=== PATIENT | male | born 1960 | race Caucasian/White ===

== ENCOUNTER 2020-06-13 16:18 | Emergency (ER) | payer OTHER ==
--- NOTE | 2020-06-13 16:33 | EDM.PDOC ---
ED HPI GENERAL MEDICAL PROBLEM - General Chief Complaint: Laceration Stated Complaint: RIGHT THUMB LACERATION Time Seen by Provider: 06/13/20 16:33 Source of Information: Reports: Patient - History of Present Illness INITIAL COMMENTS - FREE TEXT/NARRATIVE: Christiano, 59-year-old male, presents with avulsion laceration to the distal pad of the right thumb. Was using a mandolin slicer with his right hand, being right hand dominant, slicing potatoes. Denies any other injury or contact but head laceration that was uncontrolled bleeding other than with maintaining constant pressure. He is not up-to-date on his tetanus status. He denies any other factors contributing to this nor medical concerns. 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 [No Known Home Meds] 06/13/20 [History] Past Medical History - Past Health History Medical/Surgical History: Denies Medical/Surgical History Social & Family History - Family History Family Medical History: No Pertinent Family History - Tobacco Use Tobacco Use Status *Q: Current Every Day Tobacco User ED ROS GENERAL - Review of Systems Review Of Systems: Comprehensive ROS is negative, except as noted in HPI. ED EXAM, SKIN/RASH Exam: See Below Text/Narrative:: Alert, oriented, in no distress. HEENT negative discharge or deformity. There is no respiratory distress noted. Cardiac is regular radial pulse present and correlating with apical heart rate. Focused examination to the right first digit as he has been holding direct pressure controlling bleeding. There is a 1 cm in length two-three mm in width and at least a millimeter deep down to the capillaries that has been avulsed with the mandolin slicer. This is a very clean cut but due to the with of the injury and no tissue remnants there is no suturing or repair available. This will need to be controlled with continued pressure and a pressure dressing and take into consideration the extended time of healing due to that full granulation of thickness of the dermis. Course - Vital Signs Last Recorded V/S: Last Vital Signs Temp 99.1 F 06/13/20 16:30 Pulse 122 H 06/13/20 16:30 Resp 18 06/13/20 16:30 BP 165/104 H 06/13/20 16:30 Pulse Ox 97 06/13/20 16:30 - Orders/Labs/Meds Orders: Active Orders 24 hr Category Date Time Status Vaccines to be Administered [RC] PER UNIT ROUTINE Care 06/13/20 16:43 Ordered Meds: Medications Discontinued Medications Generic Name Dose Route Start Last Admin Trade Name Freq PRN Reason Stop Dose Admin Diphtheria/Tetanus/Acell Pertussis 0.5 ml 06/13/20 16:43 06/13/20 16:47 Boostrix IM 06/13/20 16:44 0.5 ml .ONCE ONE Administration - Re-Assessments/Exams Free Text/Narrative Re-Assessment/Exam: 06/13/20 17:03 After reevaluating the wound Telfa is applied directly to the wound controlling bleeding. We are then able to use Tubegauz and apply pressure keeping the tube gauze taut as we apply each layer. We are then able to loop and tie at the wrist to hold in place and continue direct pressure with crossing of his first and second digits. TDaP is administered to update his status. No bleeding is coming through and he is provided with instructions for follow-up and discharged. Departure - Departure Time of Disposition: 16:48 Disposition: Home, Self-Care 01 Condition: Good Clinical Impression: Avulsion of skin of finger, Immunization due - Discharge Information *PRESCRIPTION DRUG MONITORING PROGRAM REVIEWED*: Not Applicable *COPY OF PRESCRIPTION DRUG MONITORING REPORT IN PATIENT FLORIDALMA: Not Applicable Instructions: Skin Tear, [id number], VIS, Tetanus, Diphtheria, and Pertussis (Tdap) - CDC (08/14/2019) Referrals: Dee Dillon PA-C [Primary Care Provider] - Forms: ED Department Discharge Additional Instructions: Keep this dressing on applying compression until tomorrow at roughly noon. Keep your thumb elevated as much as possible for the next 4 hours. You may apply ice to reduce swelling. You may remove at that time tomorrow, wash and then cover with Band-Aid when working in dirty environment. This may take 2 weeks or so for tissue to granulate and fill back in or the avulsion took place. You will experience some pain int eh shoulder/arm from your TDaP booster shot. Watch for signs of infection. Follow-up with your clinic as needed. Sepsis Event Note (ED) - Focused Exam Vital Signs: Vital Signs Temp Pulse Resp BP Pulse Ox 06/13/20 16:30 99.1 F 122 H 18 165/104 H 97 - Problem List & Annotations (1) Avulsion of skin of finger SNOMED Code(s): 646695290, 453338421 Code(s): S61.209A - UNSP OPEN WOUND OF UNSP FINGER W/O DAMAGE TO NAIL, INIT Status: Acute Current Visit: Yes Qualifiers: Encounter type: initial encounter Qualified Code(s): S61.209A - Unspecified open wound of unspecified finger without damage to nail, initial encounter (2) Immunization due SNOMED Code(s): 227615150 Code(s): Z23 - ENCOUNTER FOR IMMUNIZATION Status: Acute Priority: High Current Visit: Yes - Problem List Review Problem List Initiated/Reviewed/Updated: Yes - My Orders Last 24 Hours: My Active Orders 06/13/20 16:43 Vaccines to be Administered [RC] PER UNIT ROUTINE - Assessment/Plan Last 24 Hours: My Active Orders 06/13/20 16:43 Vaccines to be Administered [RC] PER UNIT ROUTINE Plan: Keep this dressing on applying compression until tomorrow at roughly noon. Keep your thumb elevated as much as possible for the next 4 hours. You may apply ice to reduce swelling. You may remove at that time tomorrow, wash and then cover with Band-Aid when working in dirty environment. This may take 2 weeks or so for tissue to granulate and fill back in or the avulsion took place. You will experience some pain int eh shoulder/arm from your TDaP booster shot. Watch for signs of infection. Follow-up with your clinic as needed.
[2020-06-13] MEDS ORDERED: Diphtheria,Pertussis(Acell),Tetanus Vaccine 0.5 ML Syringe IM ONE (16:43)
== END 2020-06-13 17:05 | disposition home or self-care (01) ==
LOC: KA.ED 16:18
DX: S61.011A Laceration without foreign body of right thumb without damage to nail, initial encounter (principal); Z88.8 Allergy status to other drugs, medicaments and biological substances; Z72.0 Tobacco use; Z23 Encounter for immunization; W26.8XXA Contact with other sharp object(s), not elsewhere classified, initial encounter
CPT/HCPCS: 90471; 90715; 99282; 99283